=== PATIENT | male | born 1975 | race Caucasian/White ===

== ENCOUNTER 2018-01-24 18:05 | Emergency (ER) | payer OTHER ==
[2018-01-24] MEDS: HYDROmorphONE 0.5 MG/0.5 ML SYG IV (20:50)
[2018-01-24] MEDS: LIDOCAINE 2% JELLY 5 ML TOP (20:50)
[2018-01-24] MEDS: KETOROLAC 15 MG INJ IV (22:08)
== END 2018-01-25 08:25 | disposition home or self-care (01) ==
LOC: E/R 01-25 08:25
DX: N20.0 Calculus of kidney (principal); R33.9 Retention of urine, unspecified; F17.210 Nicotine dependence, cigarettes, uncomplicated; Z96.0 Presence of urogenital implants
CPT/HCPCS: 51700; 96374; 96375; 99284-25

== ENCOUNTER 2018-01-25 18:42 | Emergency (ER) | payer OTHER ==
[2018-01-25] MEDS: KETOROLAC 30 MG INJ IV (19:41)
[2018-01-25] MEDS: ONDANSETRON 4 MG INJ IV (19:41)
[2018-01-25 19:47] LABS: ADD UMIC YES; UR ASCORBIC ACID NEGATIVE (NEGATIVE); UR BILIRUBIN (Dip) NEGATIVE (NEGATIVE); UR BLOOD (Dip) 3+ mg/dL (NEGATIVE); UR CLARITY CLOUDY (CLEAR); UR COLOR AMBER (YELLOW); UR GLUCOSE (Dip) NEGATIVE (NEGATIVE); UR KETONES (Dip) NEGATIVE (NEGATIVE); UR LEUKOCYTE ESTERASE (Dip) NEGATIVE Leu/ul (NEGATIVE); UR NITRITE (Dip) POSITIVE (NEGATIVE); UR RBC > 182 /HPF (0-5); UR SPECIFIC GRAVITY (Dip) 1.015 (1.003-1.030); UR TOTAL PROTEIN (Dip) 2+ mg/dl (NEGATIVE); UR UROBILINOGEN (Dip) 2+ mg/dL (NEGATIVE); UR WBC 170 /HPF (0-5)
[2018-01-25 19:51] LABS: ADD MAN DIFF? NO
[2018-01-25 19:56] LABS: WHITE BLOOD COUNT 12.4 10^3/ul (4.8-10.8)
[2018-01-25 19:56] LABS: BASOPHILS % 0.2 % (0.0-2.0); EOSINOPHILS # 0.2 10^3/ul (0.0-0.5); EOSINOPHILS % 1.4 % (0.0-7.0); HEMATOCRIT 38.8 % (42.0-52.0); HEMOGLOBIN 13.7 g/dl (14.0-18.0); LYMPHOCYTES # 1.8 10^3/ul (0.8-2.9); LYMPHOCYTES % 14.3 % (15.0-51.0); MEAN CORPUSCULAR HEMOGLOBIN 31.7 pg (29.0-33.0); MEAN CORPUSCULAR HGB CONC 35.3 g/dl (32.0-37.0); MEAN CORPUSCULAR VOLUME 89.8 fl (82.0-101.0); MEAN PLATELET VOLUME 10.1 fl (7.4-10.4); MONOCYTE # 1.2 10^3/ul (0.3-0.9); MONOCYTES % 9.7 % (0.0-11.0); NEUTROPHIL # 9.2 10^3/ul (1.6-7.5); NEUTROPHILS % 73.9 % (39.0-77.0); PLATELET COUNT 189 10^3/UL (140-415); RED BLOOD COUNT 4.32 10^6/ul (4.70-6.10)
[2018-01-25 20:14] LABS: ALANINE AMINOTRANSFERASE 29 IU/L (13-69); ALBUMIN 4.2 g/dl (3.3-4.9); ALBUMIN/GLOBULIN RATIO 1.61; ALKALINE PHOSPHATASE 83 IU/L (42-121); ANION GAP 14 (8-16); ASPARTATE AMINO TRANSFERASE 22 IU/L (15-46); BILIRUBIN,INDIRECT 0.9 mg/dl (0-1.1); BILIRUBIN,TOTAL 0.9 mg/dl (0.2-1.3); BLOOD UREA NITROGEN 12 mg/dl (7-20); CARBON DIOXIDE 28 mmol/L (21-31); CHLORIDE 105 mmol/L (97-110); CREATININE 0.93 mg/dl (0.61-1.24); GLUCOSE 101 mg/dl (70-220); LIPASE 399 U/L (23-300); POTASSIUM 3.7 mmol/L (3.5-5.1); SODIUM 143 mmol/L (135-144); TOTAL PROTEIN 6.8 g/dl (6.1-8.1)
[2018-01-25 20:17] LABS: INR 1.06; PROTIME 13.9 Sec (11.9-14.9); PT RATIO 1.1
[2018-01-25 20:18] LABS: PARTIAL THROMBOPLASTIN TIME 29.5 Sec (25.0-35.0)
[2018-01-25] MEDS: KETOROLAC 15 MG INJ IV (22:57)
== END 2018-01-25 22:59 | disposition home or self-care (01) ==
LOC: FTE 18:42
DX: R10.9 Unspecified abdominal pain (principal); F17.210 Nicotine dependence, cigarettes, uncomplicated
CPT/HCPCS: 36415; 74176; 80053; 81001; 83690; 85025; 85610; 85730; 96374; 96375; 96376; 99285-25

== ENCOUNTER 2018-06-20 03:04 | Emergency (ER) | payer OTHER ==
[2018-06-20] MEDS: SOD CHLORIDE 0.9% 1,000 ML IV (03:48)
[2018-06-20] MEDS: morphine 4 MG/ML VIAL IV ×2 (03:50→06:20)
[2018-06-20] MEDS: ONDANSETRON 4 MG INJ IV (03:51)
[2018-06-20 04:05] LABS: ADD MAN DIFF? NO
[2018-06-20 04:15] LABS: WHITE BLOOD COUNT 11.6 10^3/ul (4.8-10.8)
[2018-06-20 04:15] LABS: BASOPHIL # 0.1 10^3/ul (0.0-0.1); BASOPHILS % 0.4 % (0.0-2.0); EOSINOPHILS # 0.3 10^3/ul (0.0-0.5); EOSINOPHILS % 2.5 % (0.0-7.0); HEMATOCRIT 43.5 % (42.0-52.0); HEMOGLOBIN 15.4 g/dl (14.0-18.0); MEAN CORPUSCULAR HEMOGLOBIN 31.8 pg (29.0-33.0); MEAN CORPUSCULAR HGB CONC 35.4 g/dl (32.0-37.0); MEAN CORPUSCULAR VOLUME 89.7 fl (82.0-101.0); MEAN PLATELET VOLUME 10.1 fl (7.4-10.4); MONOCYTES % 8.3 % (0.0-11.0); NEUTROPHIL # 7.2 10^3/ul (1.6-7.5); NEUTROPHILS % 62.3 % (39.0-77.0); PLATELET COUNT 218 10^3/UL (140-415); RED BLOOD COUNT 4.85 10^6/ul (4.70-6.10); RED CELL DISTRIBUTION WIDTH 11.9 % (11.5-14.5)
[2018-06-20 04:27] LABS: ALANINE AMINOTRANSFERASE 23 IU/L (13-69); ALBUMIN 4.4 g/dl (3.3-4.9); ALBUMIN/GLOBULIN RATIO 1.62; ALKALINE PHOSPHATASE 91 IU/L (42-121); ANION GAP 15 (8-16); ASPARTATE AMINO TRANSFERASE 23 IU/L (15-46); BILIRUBIN,INDIRECT 0.3 mg/dl (0-1.1); BILIRUBIN,TOTAL 0.3 mg/dl (0.2-1.3); BLOOD UREA NITROGEN 21 mg/dl (7-20); CALCIUM 9.7 mg/dl (8.4-10.2); CARBON DIOXIDE 24 mmol/L (21-31); CHLORIDE 107 mmol/L (97-110); CREATININE 0.92 mg/dl (0.61-1.24); GLUCOSE 121 mg/dl (70-220); LIPASE 62 U/L (23-300); POTASSIUM 3.6 mmol/L (3.5-5.1); SODIUM 142 mmol/L (135-144); TOTAL PROTEIN 7.1 g/dl (6.1-8.1)
[2018-06-20 06:19] LABS: ADD UMIC YES; UR ASCORBIC ACID NEGATIVE (NEGATIVE); UR BACTERIA FEW /HPF (NONE SEEN); UR BILIRUBIN (Dip) NEGATIVE (NEGATIVE); UR BLOOD (Dip) 3+ mg/dL (NEGATIVE); UR CALCIUM OXALATE CRYSTAL FEW /HPF (NONE SEEN); UR CLARITY CLEAR (CLEAR); UR COLOR YELLOW (YELLOW); UR GLUCOSE (Dip) NEGATIVE (NEGATIVE); UR KETONES (Dip) TRACE mg/dL (NEGATIVE); UR LEUKOCYTE ESTERASE (Dip) NEGATIVE Leu/ul (NEGATIVE); UR MUCUS MODERATE /HPF (NONE SEEN); UR NITRITE (Dip) NEGATIVE (NEGATIVE); UR RBC > 182 /HPF (0-5); UR SPECIFIC GRAVITY (Dip) 1.026 (1.003-1.030); UR TOTAL PROTEIN (Dip) 2+ mg/dl (NEGATIVE); UR UROBILINOGEN (Dip) 1+ mg/dL (NEGATIVE); UR WBC 2 /HPF (0-5)
[2018-06-20] MEDS: KETOROLAC 30 MG INJ IV (06:21)
== END 2018-06-20 06:41 | disposition home or self-care (01) ==
LOC: E/R 03:04
DX: N13.2 Hydronephrosis with renal and ureteral calculous obstruction (principal); F17.210 Nicotine dependence, cigarettes, uncomplicated
CPT/HCPCS: 36415; 74176; 76705; 80053; 81001; 83690; 85025; 96374; 96375; 96376; 99285-25

== ENCOUNTER 2018-08-10 03:34 | Emergency (ER) | payer OTHER ==
[2018-08-10 05:28] LABS: ADD MAN DIFF? NO
[2018-08-10 05:34] LABS: WHITE BLOOD COUNT 11.7 10^3/ul (4.8-10.8)
[2018-08-10 05:34] LABS: BASOPHILS % 0.3 % (0.0-2.0); EOSINOPHILS # 0.3 10^3/ul (0.0-0.5); EOSINOPHILS % 2.3 % (0.0-7.0); HEMATOCRIT 39.8 % (42.0-52.0); LYMPHOCYTES # 1.8 10^3/ul (0.8-2.9); LYMPHOCYTES % 15.2 % (15.0-51.0); MEAN CORPUSCULAR HEMOGLOBIN 31.7 pg (29.0-33.0); MEAN CORPUSCULAR HGB CONC 35.2 g/dl (32.0-37.0); MONOCYTES % 8.4 % (0.0-11.0); NEUTROPHIL # 8.6 10^3/ul (1.6-7.5); NEUTROPHILS % 73.2 % (39.0-77.0); PLATELET COUNT 209 10^3/UL (140-415); RED BLOOD COUNT 4.42 10^6/ul (4.70-6.10); RED CELL DISTRIBUTION WIDTH 11.9 % (11.5-14.5)
[2018-08-10] MEDS: FENTAnyl 50 MCG/ML VIAL IV (05:34)
[2018-08-10] MEDS: SOD CHLORIDE 0.9% 1,000 ML IV (05:34)
[2018-08-10] MEDS: ONDANSETRON 4 MG INJ IV (05:34)
[2018-08-10] MEDS: KETOROLAC 15 MG INJ IV (05:35)
[2018-08-10 06:01] LABS: ALANINE AMINOTRANSFERASE 32 IU/L (13-69); ALBUMIN 3.8 g/dl (3.3-4.9); ALBUMIN/GLOBULIN RATIO 1.35; ALKALINE PHOSPHATASE 78 IU/L (42-121); ANION GAP 12 (8-16); ASPARTATE AMINO TRANSFERASE 22 IU/L (15-46); BILIRUBIN,INDIRECT 0.2 mg/dl (0-1.1); BILIRUBIN,TOTAL 0.2 mg/dl (0.2-1.3); BLOOD UREA NITROGEN 18 mg/dl (7-20); CALCIUM 9.1 mg/dl (8.4-10.2); CARBON DIOXIDE 27 mmol/L (21-31); CHLORIDE 103 mmol/L (97-110); CREATININE 0.71 mg/dl (0.61-1.24); GLUCOSE 111 mg/dl (70-220); LIPASE 55 U/L (23-300); POTASSIUM 3.6 mmol/L (3.5-5.1); SODIUM 138 mmol/L (135-144); TOTAL PROTEIN 6.6 g/dl (6.1-8.1)
[2018-08-10 06:22] LABS: URINE BLOOD (Dip) POC 2+ (NEGATIVE); URINE GLUCOSE (Dip) POC Negative (NEGATIVE); URINE KETONES (Dip) POC Negative (NEGATIVE); URINE LEUKOCYTE EST (Dip) POC Negative (NEGATIVE); URINE NITRITE (Dip) POC Negative (NEGATIVE); URINE TOTAL PROTEIN POC Negative (NEGATIVE)
[2018-08-10 06:22] LABS: URINE PH (Dip) POC 5.5 (5.0-8.5)
[2018-08-10 06:35] LABS: ADD UMIC YES; UR ASCORBIC ACID NEGATIVE (NEGATIVE); UR BILIRUBIN (Dip) NEGATIVE (NEGATIVE); UR BLOOD (Dip) 2+ mg/dL (NEGATIVE); UR CLARITY CLEAR (CLEAR); UR COLOR YELLOW (YELLOW); UR GLUCOSE (Dip) NEGATIVE (NEGATIVE); UR KETONES (Dip) NEGATIVE (NEGATIVE); UR LEUKOCYTE ESTERASE (Dip) NEGATIVE Leu/ul (NEGATIVE); UR MUCUS FEW /HPF (NONE SEEN); UR NITRITE (Dip) NEGATIVE (NEGATIVE); UR RBC 15 /HPF (0-5); UR SPECIFIC GRAVITY (Dip) 1.015 (1.003-1.030); UR TOTAL PROTEIN (Dip) NEGATIVE (NEGATIVE); UR UROBILINOGEN (Dip) NEGATIVE (NEGATIVE); UR WBC 1 /HPF (0-5)
== END 2018-08-10 07:15 | disposition home or self-care (01) ==
LOC: E/R 03:34
DX: N20.0 Calculus of kidney (principal); R31.9 Hematuria, unspecified; D72.829 Elevated white blood cell count, unspecified; N23 Unspecified renal colic; F17.210 Nicotine dependence, cigarettes, uncomplicated
CPT/HCPCS: 36415; 76775; 80053; 81001; 81003; 83690; 85025; 96374; 96375; 99285-25